=== PATIENT | male | born 2000 | race Caucasian/White ===

== ENCOUNTER 2019-11-30 14:55 | Emergency (ER) | payer BC ==
[~2019-11-30] VITALS: Ht 177.8 cm; Wt 88.6 kg
[2019-11-30 15:00] VITALS: BP 133/91; TEMP 98.5
[2019-11-30] MEDS ORDERED: CEPHALEXIN500 M1 PO (15:17)
[2019-11-30 15:24] VITALS: PULSE 89
== END 2019-11-30 15:24 | disposition home or self-care (01) ==
LOC: COL.ER 14:55
DX: H66.92 Otitis media, unspecified, left ear (principal); F17.290 Nicotine dependence, other tobacco product, uncomplicated